=== PATIENT | female | born 1995 | race Caucasian/White ===

== ENCOUNTER → 2020-11-13 11:09 | Outpatient (CLI) | payer OTHER, MEDICAID, SELFPAY ==
--- NOTE | 2020-11-13 11:12 | DI.RAD.S_ITS ---
PROCEDURE: XR RIBS LT MIN 3V W CXR1V INDICATIONS: L lower/floating rib pain TECHNIQUE: 2 views of the left ribs were acquired, along with a single view chest. COMPARISON: None. FINDINGS: Surgical changes and devices: None. Bones and chest wall: Bb marker at the inferior left ribs. No fractures or dislocations. No suspicious bony lesions. Overlying soft tissues appear unremarkable. Lungs and pleura: No pleural effusions or pneumothorax. Lungs appear clear. Mediastinum: Mediastinal contours appear normal. Heart size is normal. IMPRESSION: No displaced left-sided rib fracture. No acute cardiopulmonary abnormality. Dictated by: Rich Quigley M.D. on 11/13/2020 at 10:30 Approved by: Rich Quigley M.D. on 11/13/2020 at 10:32
== END ==
PROVIDERS: PCP Nurse Practitioner Family; Referring Provider Nurse Practitioner; Visit Provider Nurse Practitioner
DX: R07.81 Pleurodynia (principal)
CPT/HCPCS: 71101

== ENCOUNTER → 2020-12-15 07:21 | Outpatient (CLI) | payer OTHER, MEDICAID, SELFPAY ==
--- NOTE | 2020-12-15 07:22 | DI.US.S_ITS ---
PROCEDURE: US PERIPH VENOUS LOW EXTREM BI INDICATIONS: NUMBNESS/HEAVYNESS; FAMILY HISTORY DVT TECHNIQUE: Real-time imaging, as well as color and pulse Doppler interrogation, were performed of the deep veins of both legs from the inguinal ligament to the popliteal fossa. COMPARISON: None. FINDINGS: Right: The common femoral, femoral and popliteal veins are normally compressible, and free of intraluminal thrombus. Color and pulse Doppler demonstrate normal phasic intravascular flow. There is normal augmentation response to distal compression maneuver. Left: The common femoral, femoral and popliteal veins are normally compressible, and free of intraluminal thrombus. Color and pulse Doppler demonstrate normal phasic intravascular flow. There is normal augmentation response to distal compression maneuver. IMPRESSION: No evidence of deep vein thrombosis involving either the right or left lower extremities. Dictated by: Christina Mallory MD, PhD on 12/15/2020 at 8:00 Approved by: Christina Mallory MD, PhD on 12/15/2020 at 8:16
== END ==
PROVIDERS: PCP Nurse Practitioner Family; Referring Provider Physician Assistant; Visit Provider Physician Assistant
DX: R20.0 Anesthesia of skin (principal); M79.605 Pain in left leg; M79.604 Pain in right leg; Z82.49 Family history of ischemic heart disease and other diseases of the circulatory system
CPT/HCPCS: 93970